=== PATIENT | female | born 1985 | race Caucasian/White ===

== ENCOUNTER 2018-12-16 21:58 | Emergency (ER) | payer BC, SELFPAY ==
[2018-12-16 21:58] VITALS: BP 145/82; PULSE 81; RESP 16; TEMP 36.9; O2SAT 98; BMI 37.2
--- NOTE | 2018-12-16 23:04 | ED.VIS.GEN ---
History of Present Illness Chief Complaint: Rash Informant: Patient Onset: Today Narrative: Rash to the face and upper chest since 10 AM this morning. burning sensation. No changes in soaps or detergents. No new medications. Patient states she was out in the sun 5 days ago, did not have any pain the following day. No fevers. Patient came from work, states has been working there for 3 years. No known new chemicals. No recent illness or fevers. Prior similar symptoms: No Past Medical History - Allergies and Home Meds Allergies/Adverse Reactions: Allergies No Known Allergies Allergy (Verified 12/16/18 21:59) Primary Care Physician: Monique Molina MD [Primary Care Provider] - Smoking Status: Never smoker Review of Systems General: Denies: Chills, Fever, Sweats Eyes: Denies: Visual changes - bilaterally, Diplopia ENT: Denies: Rhinorrhea, Sore throat Cardiovascular: Denies: Chest pain, Palpitations Respiratory: Denies: Dyspnea, Cough, Dyspnea on exertion Gastrointestinal: Denies: Abdominal pain, Nausea, Vomiting, Diarrhea, Melena, Hematochezia Genitourinary: Denies: Dysuria, Hematuria, Frequency Musculoskeletal: Denies: Back pain, Extremity Pain Skin: Reports: Rash. Denies: Wounds Neurological: Denies: Headache, Weakness, Numbness Physical Exam Vital Signs/Narrative: Vital Signs Temp Pulse Resp BP Pulse Ox 12/16/18 21:58 98.4 F 81 16 145/82 H 98 Inital Vital Signs reviewed: Yes General: Well nourished - Past medical, Well developed, No Acute Distress Head: Normocephalic, Atraumatic, - - Malar rash to the face mild raise, erythema, no drainage. Nontender to palpation. Eyes: Perrl, EOMI ENT: Moist mucous membranes, No rhinorrhea Neck: Supple, Nontender Cardiovascular: Regular rate, Regular rhythm, No murmurs Respiratory: No distress, CTA bilaterally, Chest nontender Abdomen: Soft, Nontender, Nondistended, Normal bowel sounds Back: Nontender, Normal Inspection Extremities: Nontender, No edema Skin: Normal color, - - Mild erythema upper chest same area to darker pigmented V line from sun exposure previously. Nontender to palpation. Neurological: Alert, Oriented x3, Cranial nerves II-XII grossly intact, Normal Strength, Normal Sensation Psychological: Normal affect, Normal Mood Diagnostic/Tx/Re-eval - Medical Decision Making Patient vital signs stable, nontoxic. No clear exposure. No clinical signs of anaphylaxis. Discussed with patient using Benadryl as needed for symptoms. Exam or concerns for contact type dermatitis. She likely written for steroid prescription to start if symptoms worsen. All questions were answered. ED Disposition - Plan for ED Patient: Disposition: Home or Assisted Living Diagnosis: Contact dermatitis Instructions: ED Dermatitis Contact Prescriptions: Prednisone 40 mg PO DAILY #20 tablet Referrals: Monique Molina MD [Primary Care Provider] - 1 Week if not improving
== END 2018-12-16 23:23 | disposition home or self-care (01) ==
PROVIDERS: Emergency Provider Emergency Medicine; Family Provider Internal Medicine; PCP Internal Medicine
DX: L25.9 Unspecified contact dermatitis, unspecified cause (principal)
CPT/HCPCS: 99282